=== PATIENT | male | born 1965 | race Caucasian/White ===

== ENCOUNTER 2023-01-20 13:31 | Outpatient (REF) | payer MEDICAID, SELFPAY ==
[2023-01-20 15:38] LABS: Alanine Aminotransferase 20 U/L (0-40); Albumin Level 4.4 g/dL (3.5-5.0); Alkaline Phosphatase 101 U/L (39-117); Anion Gap 15 (12-20); Aspartate Amino Transferase 18 U/L (5-37); Bilirubin Direct 0.2 mg/dL (0.0-0.5); Bilirubin Total 0.6 mg/dL (0.0-1.0); Blood Urea Nitrogen 12 mg/dL (9-16); Calcium 9.4 mg/dL (8.4-10.2); Carbon Dioxide 22 mmol/L (22-29); Chloride 107 mmol/L (96-108); Estimated Glomerular Filt Rate > 60; Glucose Random 90 mg/dL (60-115); Potassium 4.2 mmol/L (3.3-5.1); Sodium 140 mmol/L (135-145); Total Protein 7.5 g/dL (6.5-8.0)
[2023-01-21 05:06] LABS: Syphilis Screen Nonreactive (Nonreactive)
[2023-01-21 21:08] LABS: Lyme Abs Screen <0.90 index
== END 2023-01-20 13:32 | disposition home or self-care (01) ==
LOC: HO.LAB 13:31
PROVIDERS: PCP Nurse Practitioner Family; Visit Provider Psychiatry & Neurology Neurology
DX: G31.84 Mild cognitive impairment of uncertain or unknown etiology (principal)
CPT/HCPCS: 36415; 80048; 80076; 86617; 86618; 86780

== ENCOUNTER 2023-12-23 15:39 | Outpatient (REF) | payer MEDICAID, SELFPAY ==
[2023-12-23 17:04] LABS: MANUAL DIFF FLAG NO
[2023-12-23 17:30] LABS: Alanine Aminotransferase 28 U/L (0-40); Albumin Level 4.5 g/dL (3.5-5.0); Alkaline Phosphatase 94 U/L (39-117); Anion Gap 13 (12-20); Aspartate Amino Transferase 22 U/L (5-37); Bilirubin Total 0.3 mg/dL (0.0-1.0); Blood Urea Nitrogen 19 mg/dL (9-16); Calcium 9.8 mg/dL (8.4-10.2); Carbon Dioxide 24 mmol/L (22-29); Chloride 107 mmol/L (96-108); Estimated Glomerular Filt Rate > 60; Glucose Random 109 mg/dL (60-115); Potassium 4.5 mmol/L (3.3-5.1); Sodium 139 mmol/L (135-145); Total Protein 7.7 g/dL (6.5-8.0)
[2023-12-23 17:34] LABS: Basophils Absolute Auto 0.1 X10*3/uL (0.0-0.2); Basophils Percent Auto 0.6 % (0-2); Eosinophils Absolute Auto 0.4 X10*3/uL (0.0-0.4); Hematocrit 47.2 % (42.0-52.0); Hemoglobin 15.9 g/dl (14.0-18.0); Imm Gran Abs Auto 0.05 X10*3/uL (0.00-0.03); Imm Gran Pct Auto 0.4 % (0.0-0.4); Lymphocytes Absolute Auto 2.1 X10*3/uL (1.2-4.9); Lymphocytes Percent Auto 16.7 % (20-40); Mean Corpuscular HGB Conc 33.7 g/dl (31.0-36.0); Mean Corpuscular Hemoglobin 28.3 pg (27.0-33.0); Monocytes Absolute Auto 0.9 X10*3/uL (0.1-1.2); Neutrophils Percent Auto 72.3 % (45-73); Platelet Count 347 X10*3/uL (160-400); Red Blood Count 5.62 X10*6/uL (4.60-5.80); Red Cell Distribution Width 12.8 % (11.0-16.0); White Blood Count 12.5 X10*3/uL (4.8-10.8)
[2023-12-23 17:46] LABS: Thyroid Stimulating Hormone 2.61 uIU/mL (0.32-4.0)
== END 2023-12-23 15:40 | disposition home or self-care (01) ==
LOC: HO.HHCL 15:39
PROVIDERS: Visit Provider Nurse Practitioner Family
DX: R31.9 Hematuria, unspecified (principal); R51.9 Headache, unspecified; R27.0 Ataxia, unspecified
CPT/HCPCS: 36415; 80053; 84443; 85025; 87086

== ENCOUNTER 2024-01-20 15:21 | Outpatient (REF) | payer MEDICAID, SELFPAY ==
--- NOTE | ~2024-01-20 | CT_ITS ---
EXAMINATION: CT HEAD WITHOUT CONTRAST CLINICAL INFORMATION: Worsening headaches. Ataxia. Progressive dementia. Question hydrocephalus. COMPARISON: None available. TECHNIQUE: Contiguous axial imaging was performed from the skull base to vertex without intravenous administration of contrast. This CT examination was performed using dose optimization techniques as appropriate, variously including the following: *Automated exposure control *Adjustment of mA and/or kV according to patient size (this includes techniques or standardized protocols for targeted exams where dose is matched to indication/reason for exam; i.e. extremities or head) *Use of iterative reconstruction technique DLP: 701.05 mGy-cm FINDINGS: There is no acute intracranial hemorrhage. There is no evidence of acute/subacute cerebral or cerebellar infarction. There is no midline shift or mass effect. No extra-axial fluid collection. The ventricles are normal in size. The orbits are symmetric and within normal limits. The calvarium is intact. There is a tiny inferior right mastoid air cell effusion. The paranasal sinuses are well aerated. CT/CT head/brain wo IV con IMPRESSION: No intracranial hemorrhage or evidence of acute/subacute cerebral or cerebellar infarction. No evidence of intracranial mass lesion. No hydrocephalus.
--- NOTE | ~2024-01-20 | CT_ITS ---
EXAMINATION: CT LUMBAR SPINE WITHOUT AND WITH CONTRAST CLINICAL INFORMATION: New onset of bowel and bladder incontinence. COMPARISON: None available. TECHNIQUE: 2 minutes thin axial and reformatted 2 minutes thin sagittal coronal images of lumbar spine were obtained with and without contrast. This CT examination was performed using dose optimization techniques as appropriate, variously including the following: *Automated exposure control *Adjustment of mA and/or kV according to patient size (this includes techniques or standardized protocols for targeted exams where dose is matched to indication/reason for exam; i.e. extremities or head) *Use of iterative reconstruction technique DLP: 1833 mGy-cm FINDINGS: There is maintained lumbar lordosis with grade 1 anterolisthesis L5 over S1 and moderate ventral bridging osteophyte. There is mild loss of L5-S1 disc height. Rest the disc heights are normal. The vertebral heights and alignment is normal except L5/S1 disc level. There is moderate ventral spondylosis from L1-L2 through L3-L4 disc level. There is minimal pseudo at of L5-S1 disc level without spinal canal stenosis. There is bilateral L5 pars defect with hypertrophic facet joint arthropathy at the L4-L5 significantly increased on the right. Mild bilateral facet joint arthropathy seen at the L3-L4, L2-L3 disc levels. Postcontrast there is no abnormal enhancement seen in the spinal canal. No lytic or sclerotic process seen. The paravertebral soft tissues are normal. CT/CT lumbar spine wo/w IV con IMPRESSION: No soft tissue mass, abnormal enhancement seen in the lower thoracic/lumbar spine region to suspect any focal mass or herniation. Grade 1 anterolisthesis L5 over S1 with pars defect and moderate to significant bilateral facet joint arthropathy , worse on the right side at the L4-L5 disc level. There is no spinal compromise at any of the lower dorsal and lumbar spine areas.
[2024-01-20] MEDS: iohexoL 350 MG/ML 100 ML INFUS..BTL 85 ML IV (16:46)
== END 2024-01-20 15:22 | disposition home or self-care (01) ==
LOC: HO.CT 15:21
PROVIDERS: PCP Nurse Practitioner Family; Visit Provider Nurse Practitioner Family
DX: R27.0 Ataxia, unspecified (principal); M47.26 Other spondylosis with radiculopathy, lumbar region; R51.9 Headache, unspecified
CPT/HCPCS: 70450; 72133; Q9967

== ENCOUNTER 2024-02-23 13:29 | Outpatient (REF) | payer MEDICAID, SELFPAY ==
[2024-02-23 15:22] LABS: Vitamin B12 572 pg/mL (200-900)
[2024-02-24 07:34] LABS: Lyme Abs Screen <0.90 index
[2024-02-24 10:37] LABS: Syphilis Screen Nonreactive (Nonreactive)
== END 2024-02-23 13:30 | disposition home or self-care (01) ==
LOC: HO.LAB 13:29
PROVIDERS: PCP Nurse Practitioner Family; Visit Provider Psychiatry & Neurology Neurology
DX: Z11.8 Encounter for screening for other infectious and parasitic diseases (principal)
CPT/HCPCS: 36415; 82607; 86617; 86618; 86780

== ENCOUNTER 2024-03-15 10:50 | Outpatient (AMB) | payer MEDICAID, SELFPAY ==
--- NOTE | 2024-03-15 11:01 | A.OFFVIS_ITS ---
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 His sister states that he has had some memory loss. He complains of urinary urgency and has seen blood in the urine. I have discussed reasons for blood in the urine may include but are not limited to kidney stones, cancer in the urinary tract, BPH, or inflammatory conditions of the urinary tract. I have discussed workup to include cystoscopy evaluation. Will trial VESIcare 5 mg daily. Review of Systems Const All systems reviewed & are unremarkable except as noted in HPI and below Reports no additional complaints Eyes Reports no additional complaints ENT Reports no additional complaints Card Reports no additional complaints Resp Reports no additional complaints GI Reports no additional complaints Reports as per HPI Musc Reports no additional complaints Skin/Breast Reports system reviewed and no additional complaints, except as documented Neuro Reports no additional complaints Psych Reports no additional complaints Endo Reports no additional complaints Franklin/Lymph Reports no additional complaints Aller/Immun Reports no additional complaints Physical Exam Const General: healthy appearing, no acute distress and well developed Orientation/consciousness: patient oriented x3 HEENT Head: Yes normocephalic and Yes atraumatic Eyes Conjunctivae: conjunctivae normal Neck Neck: Yes normal visual inspection Chest Chest palpation & inspection: normal inspection of the chest Resp Effort & Inspection: normal respiratory effort Cardio Rate: regular rate GI Inspection: Yes normal to inspection Neuro General: patient oriented x3 Psych Appearance: grossly normal Affect: normal affect Office Procedures Post Void Residual Post Residual Void Post Void Residual (PVR): 62 [id number]-Mbjp Void Residual by ultrasound Results AMB Urinalysis, Automated UA Leukoctes 0 Zulema/uL Last Edit by Philly House CMA on 03/15/24 11:13 UA Nitrite Negative Last Edit by Philly House CMA on 03/15/24 11:13 UA Urobilinogen 0.2 mg/dL Last Edit by Philly House CMA on 03/15/24 11:13 UA Protein 0 mg/dL Last Edit by Philly House, GLO on 03/15/24 11:13 UA pH 5.5 Last Edit by Philly House, GLO on 03/15/24 11:13 UA Blood 0 Bharat/uL Last Edit by Philly House, GLO on 03/15/24 11:13 UA Specific [place] 1.020 Last Edit by Philly House, GLO on 03/15/24 11:13 UA Ketone Negative Last Edit by Philly House CMA on 03/15/24 11:13 UA Bilirubin 0 mg/dL Last Edit by Philly House CMA on 03/15/24 11:13 UA Glucose 0 mg/dL Last Edit by Philly House CMA on 03/15/24 11:13 Results Reviewed Results Reviewed: Laboratory Last Values Urine pH (Auto) 5.5 03/15/24 11:12 Specific [place] (Auto) 1.020 03/15/24 11:12 Urine Protein (Auto) 0 mg/dL 03/15/24 11:12 Glucose (UA)(Auto) 0 mg/dL 03/15/24 11:12 Urine Ketones (Auto) Negative 03/15/24 11:12 Urine Blood (Auto) 0 Bharat/uL 03/15/24 11:12 Urine Nitrite (Auto) Negative 03/15/24 11:12 Urine Bilirubin (Auto) 0 mg/dL 03/15/24 11:12 Urine Urobilinogen (Auto) 0.2 mg/dL 03/15/24 11:12 Leukocyte Esterase (Auto) 0 Zulema/uL 03/15/24 11:12 Assessment & Plan Assessment & Plan (1) Gross hematuria: Code(s): R31.0 - Gross hematuria Category: Medical (2) Screening PSA (prostate specific antigen): Code(s): Z12.5 - Encounter for screening for malignant neoplasm of prostate Category: Medical (3) Urinary frequency: Code(s): R35.0 - Frequency of micturition Category: Medical Plan CT urogram, follow-up office cystoscopy. Trial VESIcare Orders: Orders AMB Urinalysis Automated 03/15/24 Z13.9 - Encounter for screening, unspecified AMB Post Void Residual by ultrasound 03/15/24 Z13.9 - Encounter for screening, unspecified CT urogram 03/15/24 R31.0 - Gross hematuria Creatinine 03/15/24 R31.0 - Gross hematuria Blood Urea Nitrogen 03/15/24 R31.0 - Gross hematuria PSA,Total (Free>4and<10) 03/15/24 Z12.5 - Encounter for screening for malignant neoplasm of prostate, R31.0 - Gross hematuria Medications: New solifenacin (Vesicare) 5 mg PO DAILY 30 tabs 3RF Patient Instructions: The patient had an opportunity to ask questions regarding treatment plan. The patient expressed understanding and agreement with the above treatment plan. The patient is aware they should contact our office by phone for worsening of their current condition or the appearance of new symptoms. Compliance is encouraged with any medications and followup testing that is ordered. It is a privilege to be allowed the opportunity to participate in the urologic care of your patient. If you have any questions or concerns regarding treatment for the above conditions please do not hesitate to contact me. The office telephone contact is [phone]. This note is constructed in part using voice recognition software. While every effort has been made to ensure accuracy planning assistant errors may have been included. Yours sincerely, Lucina Archibald MD Coding Level of Care Code New Pt Level 4 (70999) Diagnoses Gross hematuria R31.0 Screening PSA (prostate specific antigen) Z12.5 Urinary frequency R35.0 CPT Codes Post Residual Void - PVR CPT Code: 66950-Fxci Void Residual by ultrasound ([id number])
== END 2024-03-15 11:29 | disposition home or self-care (01) ==
PROVIDERS: PCP Nurse Practitioner Family; Visit Provider Urology
DX: R31.0 Gross hematuria (principal); Z12.5 Encounter for screening for malignant neoplasm of prostate; R35.0 Frequency of micturition
CPT/HCPCS: 99204

== ENCOUNTER → 2024-03-15 10:50 | Outpatient (BNVA) | payer MEDICAID, SELFPAY | PROVIDERS: PCP Nurse Practitioner Family; Visit Provider Urology | DX: R31.0 Gross hematuria (principal); R35.0 Frequency of micturition; Z12.5 Encounter for screening for malignant neoplasm of prostate | CPT/HCPCS: 51798; 81003; 99202 ==

== ENCOUNTER 2024-03-15 11:52 | Outpatient (REF) | payer MEDICAID, SELFPAY ==
[2024-03-15 14:10] LABS: Prostate Specific Antigen Scr 0.88 ng/mL (<0.05-4.0)
[2024-03-16 12:49] LABS: RPR Rapid Plasma Reagin NON-REACTIVE (NON-REACTIVE)
== END 2024-03-15 11:53 | disposition home or self-care (01) ==
LOC: HO.10HDL 11:52
PROVIDERS: Visit Provider Nurse Practitioner Family
DX: Z12.5 Encounter for screening for malignant neoplasm of prostate (principal); R31.9 Hematuria, unspecified; R27.0 Ataxia, unspecified
CPT/HCPCS: 36415; 84153; 86592

== ENCOUNTER 2024-03-16 12:30 | Outpatient (REF) | payer MEDICAID, SELFPAY ==
--- NOTE | ~2024-03-16 | XR_ITS ---
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 TECHNIQUE: PA, lateral, oblique, and scaphoid views of the left wrist. FINDINGS: No fracture, dislocation, or suspicious bone lesion. Normal bone mineralization. Carpal bones intact and normally aligned. No erosions present. Mild blunting of the ulnar styloid noted. 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 Mild narrowing of the radiocarpal joint. Mild degenerative arthritis first CMC joint. No definitive chondrocalcinosis evident. No soft tissue abnormalities. XR/XR wrist LT min 3V IMPRESSION: 1. No acute findings left wrist. 2. Mild degenerative arthritic changes as discussed. Electronically signed by: Issa Saldana MD 05/25/2024 02:56 PM ELIJAH RANDALL
== END 2024-03-16 12:31 | disposition home or self-care (01) ==
LOC: HO.HHCX 12:30
PROVIDERS: Visit Provider Nurse Practitioner Family
DX: R22.32 Localized swelling, mass and lump, left upper limb (principal)
CPT/HCPCS: 73110

== ENCOUNTER → 2024-03-16 12:31 | Outpatient (BNV) | payer MEDICAID, SELFPAY | PROVIDERS: Visit Provider Radiology Diagnostic Radiology | DX: R22.32 Localized swelling, mass and lump, left upper limb (principal) | CPT/HCPCS: 73110 ==

== ENCOUNTER → 2024-04-23 14:47 | Outpatient (REF) | payer MEDICAID, SELFPAY | LOC: HO.SL 14:47 | PROVIDERS: PCP Nurse Practitioner Family; Visit Provider Psychiatry & Neurology Neurology | DX: G47.33 Obstructive sleep apnea (adult) (pediatric) (principal) | CPT/HCPCS: 95806 ==

== ENCOUNTER → 2024-04-24 19:00 | Outpatient (BNV) | payer MEDICAID, SELFPAY | PROVIDERS: PCP Nurse Practitioner Family; Visit Provider Internal Medicine | DX: R06.83 Snoring (principal) | CPT/HCPCS: 95806 ==

== ENCOUNTER 2024-05-03 15:28 | Outpatient (REF) | payer MEDICAID, SELFPAY ==
[2024-05-03 18:13] LABS: Alanine Aminotransferase 19 U/L (0-40); Albumin Level 4.2 g/dL (3.5-5.0); Alkaline Phosphatase 88 U/L (39-117); Anion Gap 12 (12-20); Aspartate Amino Transferase 20 U/L (5-37); Bilirubin Total 0.3 mg/dL (0.0-1.0); Blood Urea Nitrogen 17 mg/dL (9-16); Calcium 8.8 mg/dL (8.4-10.2); Carbon Dioxide 23 mmol/L (22-29); Chloride 108 mmol/L (96-108); Estimated Glomerular Filt Rate > 60; Glucose Random 96 mg/dL (60-115); Potassium 4.6 mmol/L (3.3-5.1); Sodium 138 mmol/L (135-145); Total Protein 7.2 g/dL (6.5-8.0)
[2024-05-03 18:15] LABS: PSA,Total (Free>4and<10) 0.81 ng/mL (0.00-4.00)
[2024-05-03 18:22] LABS: Uric Acid 6.2 mg/dL (3.4-7.0)
[2024-05-07 11:28] LABS: RPR Rapid Plasma Reagin NON-REACTIVE (NON-REACTIVE)
== END 2024-05-03 15:29 | disposition home or self-care (01) ==
LOC: HO.LAB 15:28
PROVIDERS: PCP Nurse Practitioner Family; Visit Provider Urology
DX: I10 Essential (primary) hypertension (principal); R41.0 Disorientation, unspecified; R31.0 Gross hematuria; Z12.5 Encounter for screening for malignant neoplasm of prostate
CPT/HCPCS: 36415; 80053; 84153; 84550; 86592

== ENCOUNTER 2024-05-08 10:52 | Outpatient (REF) | payer MEDICAID, SELFPAY ==
[2024-05-08] MEDS: iohexoL 350 MG/ML 100 ML INFUS..BTL IV (11:30)
== END 2024-05-08 10:53 | disposition home or self-care (01) ==
LOC: HO.CT 10:52
PROVIDERS: PCP Nurse Practitioner Family; Visit Provider Urology
DX: R31.0 Gross hematuria (principal)
CPT/HCPCS: 74178; Q9967

== ENCOUNTER → 2024-05-08 10:54 | Outpatient (BNV) | payer MEDICAID, SELFPAY | PROVIDERS: PCP Nurse Practitioner Family; Visit Provider Radiology Diagnostic Radiology | DX: R31.0 Gross hematuria (principal) | CPT/HCPCS: 74178 ==

== ENCOUNTER 2024-08-23 13:25 | Outpatient (AMB) | payer MEDICAID, SELFPAY ==
--- NOTE | 2024-08-23 13:34 | MHC.OFFVIS ---
Intake Visit Reasons: cysto (hematuria) Intake Note: Patient is present for Cystoscopy Urology Medication:SOLIFEACIN Antibiotic Allergy:NONE Blood Thinner:NONE Lot:[id number] Exp:04/23/27 Equity Manager Required: No Equity Manager Name: Maylin Light Information Interpreted: non-clinical & clinical Allergies No Known Allergies Allergy (Verified 08/23/24 13:37) Medication List - Last Reconciled 08/23/24 by Lucina Archibald MD escitalopram oxalate 20 mg PO DAILY lisinopril 20 mg PO DAILY omeprazole 20 mg PO DAILY quetiapine 300 mg PO BEDTIME solifenacin (Vesicare) 5 mg PO DAILY HPI Comments Details: 08/23/24--Here for office cysto. Cystoscopy findings: mild to moderate trabeculations, prostatic urethra non obstructive, bulbous urethra WNL, no suspicious bladder lesions visualized Luis is a 59-year-old male presenting in February 2024, he reported urgency with urinary symptoms, including hematuria and and was prescribed Vesicare. Initially seen with blood in the urine, his CT urogram in April 2024 was unremarkable. His current symptoms include occasional post-void dribbling. Today's cystoscopy showed mild bladder wall thickening without tumors, which might contribute to urgency and spasms. The patient reports no nocturnal urinary symptoms or pain and has no history of smoking. Urinary Symptoms Review - Blood in urine (hematuria) noted initially but not currently present - Urinary urgency reported, previously prescribed Vesicare 5 mg daily - Post-micturition dribbling noticed, advised to ensure complete emptying - No further incidence of hematuria since initial episode - No reported nocturia or associated pain symptoms Results - Tests: CT urogram 05/08/24--negative for renal parenchymal lesions or nephrolithiasis 03/15/24--Luis is a 58-year-old male who is here with his sister, presents for evaluation for hematuria. His sister states that he has had some memory loss. He complains of urinary urgency and has seen blood in the urine. I have discussed reasons for blood in the urine may include but are not limited to kidney stones, cancer in the urinary tract, BPH, or inflammatory conditions of the urinary tract. I have discussed workup to include cystoscopy evaluation. Will trial VESIcare 5 mg daily. Review of Systems Const All systems reviewed & are unremarkable except as noted in HPI and below Reports no additional complaints Eyes Reports no additional complaints ENT Reports no additional complaints Card Reports no additional complaints Resp Reports no additional complaints GI Reports no additional complaints Reports as per HPI Musc Reports no additional complaints Skin/Breast Reports system reviewed and no additional complaints, except as documented Neuro Reports no additional complaints Psych Reports no additional complaints Endo Reports no additional complaints Franklin/Lymph Reports no additional complaints Aller/Immun Reports no additional complaints Office Procedures Cystoscopy Consent Discussed risk and benefit or proposed procedure with the patient. Information consent for procedure given to the patient. Discussed technical aspects, risks, benefits and alternatives in full. Addressed all of the patient's questions and concerns regarding the procedure. The patient demonstrated knowledge and understanding. They wish to proceed with this procedure. Preparation The patient was prepped in the usual manner. A customer service operator was present and in the room. Genitalia was prepped with betadine solution in a sterile manner. Lidocaine Jelly 2% was placed into the urethra and 16Fr flexible Olympus cystoscope was inserted into the meatus after adequate lubrication. Procedure Time out per protocol performed. Bladder Inspection Bladder Inspection: The bladder was inspected in its entirety with utilization retroflexion displaying: Tumor(s): no suspicious bladder lesions visualized Trabeculation: Mild Moderate Mucosal Erthema: NA Orifices: normal shape and position Urethra: normal Cystoscopy findings: prostatic urethra non obstructive, bulbous urethra WNL, no suspicious bladder lesions visualized [id number] DISPOSABLE SCOPE URO-G FLEXIBLE SCOPE Procedure code (CPT) selection complete Office Meds lidocaine HCl 2 % mucosal jelly in applicator Performing Provider: Lucina Archibald MD Performing [facility] Administered by: Anastacia Álvarez RN on 08/23/24 14:05 Dose Route Admin Location Dispensed Lot Number Expiration Date [facility] [employer] 10 mL intra-urethral 10 mL ciprofloxacin HCl 500 mg tablet Performing Provider: Lucina Archibald MD Performing Location: [facility] Administered by: Anastacia Álvarez RN on 08/23/24 14:05 Dose Route Admin Location Dispensed Lot Number Expiration Date [facility] [employer] 500 mg PO 1 tab Results AMB Urinalysis, Automated UA Leukoctes 0 Zulema/uL Last Edit by DEION Boateng on 08/23/24 13:56 UA Nitrite Negative Last Edit by DEION Boateng on 08/23/24 13:56 UA Urobilinogen 3.5 mg/dL Last Edit by DEION Boateng on 08/23/24 13:56 UA Protein 15 mg/dL Last Edit by DEION Boateng on 08/23/24 13:56 UA pH 6.0 Last Edit by DEION Boateng on 08/23/24 13:56 UA Blood 0 Bharat/uL Last Edit by DEION Boateng on 08/23/24 13:56 UA Specific [place] 1.020 Last Edit by DEION Boateng on 08/23/24 13:56 UA Ketone Last Edit by DEION Boateng on 08/23/24 13:56 UA Bilirubin 0 mg/dL Last Edit by DEION Boateng on 08/23/24 13:56 UA Glucose 0 mg/dL Last Edit by DEION Boateng on 08/23/24 13:56 Results Reviewed Results Reviewed: Laboratory Last Values Urine pH (Auto) 6.0 08/23/24 13:55 Specific [place] (Auto) 1.020 08/23/24 13:55 Urine Protein (Auto) 15 mg/dL 08/23/24 13:55 Glucose (UA)(Auto) 0 mg/dL 08/23/24 13:55 Urine Blood (Auto) 0 Bharat/uL 08/23/24 13:55 Urine Nitrite (Auto) Negative 08/23/24 13:55 Urine Bilirubin (Auto) 0 mg/dL 08/23/24 13:55 Urine Urobilinogen (Auto) 3.5 mg/dL 08/23/24 13:55 Leukocyte Esterase (Auto) 0 Zulema/uL 08/23/24 13:55 Date of Service: 05/08/24 EXAMINATION: CT ABDOMEN AND PELVIS WITHOUT AND WITH CONTRAST CLINICAL INFORMATION: Gross hematuria COMPARISON: None available. TECHNIQUE: Noncontrast CT of the abdomen and pelvis is performed followed by split bolus contrast-enhanced images using 85 mL Omnipaque 350 contrast. Postcontrast imaging is performed during the combined nephrogram and excretion phase. Sagittal and coronal reformatted images were obtained on the technologist's workstation for both the precontrast and postcontrast phases. This CT examination was performed using dose optimization techniques as appropriate, variously including the following: *Automated exposure control *Adjustment of mA and/or kV according to patient size (this includes techniques or standardized protocols for targeted exams where dose is matched to indication/reason for exam; i.e. extremities or head) *Use of iterative reconstruction technique FINDINGS: LUNG BASES: The visualized lung bases are unremarkable. Heart size is normal LIVER, GALLBLADDER, AND BILIARY TREE: The liver is normal in size, shape, and diffusely attenuated. No focal hepatic lesion or biliary ductal dilatation is present. The gallbladder is unremarkable with no evidence of radiopaque gallstones, gallbladder wall thickening, or obvious pericholecystic inflammatory changes. PANCREAS: Unremarkable. SPLEEN: Unremarkable. ADRENAL GLANDS: Unremarkable. KIDNEYS AND URETERS: The kidneys are normal in size, shape, and attenuation. No hydronephrosis, hydroureter, or calculi seen. There is mild bilateral perinephric stranding. Postcontrast there is normal cortical enhancement without enhancing lesion or cysts. On delayed exam there is good opacification of kidney pelvis and ureters without any distention or intraluminal filling defect. BLADDER: Unremarkable. GASTROINTESTINAL TRACT: There is scattered stool and gas in colon without distention. The small bowel loops are normal caliber. Appendix is normal caliber. ABDOMINAL WALL: Small umbilical hernia was noted on the previous exam.. LYMPH NODES: Normal. VASCULAR: Unremarkable. PELVIC VISCERA: The prostate gland is mildly enlarged. The periprosthetic fat borders are preserved. OSSEUS STRUCTURES: There is grade 1 anterolisthesis L5 over S1. Rest of the alignment is normal. Moderate L5-S1 facet joint arthropathy and hypertrophy is noted There is mild ventral spondylosis at L2-3 disc level. No aggressive lytic or sclerotic process seen. IMPRESSION: Unremarkable CT kidneys without and with contrast except for mild bilateral perinephric stranding. Please note the exam was performed on 05/08/2024 and is available for interpretation today 07/05/2024. Assessment & Plan Assessment & Plan (1) Gross hematuria: Code(s): R31.0 - Gross hematuria Category: Medical (2) Screening PSA (prostate specific antigen): Code(s): Z12.5 - Encounter for screening for malignant neoplasm of prostate Category: Medical (3) Urinary frequency: Code(s): R35.0 - Frequency of micturition Category: Medical (4) Bladder wall thickening: Code(s): N32.89 - Other specified disorders of bladder Category: Medical Plan Discussion Notes During the visit, I carefully explained the cystoscopy findings to the patient, detailing the presence of mild bladder wall thickening and the absence of tumors, which is promising. We discussed the continued management with Vessicare 5 mg daily to address urgency symptoms and any bladder spasms. There was a thorough discussion on the importance of complete bladder evacuation and monitoring for any further hematuria. Consent was obtained for this management approach, and the patient understands the benefits and a well-organized follow-up plan, with routine checks in place to monitor urinary symptoms and bladder health. Plan Based on the findings of mild bladder wall thickening and no bladder tumors during cystoscopy, I plan to manage the patient's urinary urgency with continued Vessicare [address] urogram being unremarkable assures no significant renal concerns. I advise the patient to ensure adequate voiding to prevent dribbling, facilitating complete bladder clearance. Regular follow-ups will be conducted to evaluate ongoing symptoms and bladder condition. No further immediate interventions or changes in the therapy are necessary. Orders: Orders AMB Cystoscopy Today R31.0 - Gross hematuria, R35.0 - Frequency of micturition AMB Urinalysis Automated Today Z13.9 - Encounter for screening, unspecified Medications: Refilled solifenacin (Vesicare) 5 mg PO DAILY 30 tabs 7RF Patient Instructions: Patient Instructions - Continue taking Vessicare 5 mg daily as prescribed. - Ensure complete bladder emptying after urination to prevent dribbling. - Monitor for any recurrence of blood in the urine or other new symptoms. - Schedule a follow-up appointment in nine months for reevaluation. - Contact our office if any urinary symptoms worsen or if there are further episodes of hematuria. The patient had an opportunity to ask questions regarding treatment plan. The patient expressed understanding and agreement with the above treatment plan. The patient is aware they should contact our office by phone for worsening of their current condition or the appearance of new symptoms. Compliance is encouraged with any medications and followup testing that is ordered. It is a privilege to be allowed the opportunity to participate in the urologic care of your patient. If you have any questions or concerns regarding treatment for the above conditions please do not hesitate to contact me. The office telephone contact is [phone]. This note is constructed in part using voice recognition software. While every effort has been made to ensure accuracy network administrator errors may have been included. Yours sincerely, Lucina Archibald MD Scribe Plan - Not visible on output: Patient was informed and verbally consented to the use of an ambient scribe for clinic note documentation during this visit. Coding Level of Care Code Est Pt Level 3 (63665) Diagnoses Gross hematuria R31.0 Screening PSA (prostate specific antigen) Z12.5 Urinary frequency R35.0 Bladder wall thickening N32.89 CPT Codes Cystoscopy - CPT: 10527-Yftserlvyc ([id number])
--- OUTSIDE RECORDS SUMMARY | 2024-08-23 16:20 | XMS_ITS | Encounter Summary ---
Author Organization [employer] Address [address] [facility] 7t [place] [address] Care Team Providers Care Plant Engineering Supervisor Name Role Phone Veronica Edmondson NP Primary Care Provider [phone] Reason for Visit * Reason Onset Date Comments Chart Prep 07/31/2024 Encounter Details Date Type Department Care Team ([facility] st Contact Info) Description 07/31/2024 Telephone [facility] [address] [place], [place] [phone] Kamryn Ley MA Chart Prep Social History Tobacco Use Types Packs/Day Years Used Date Smoking Tobacco: Never Passive Smoke Exposure: Never Smokeless Tobacco: Never Alcohol Use Standard Drinks/Week Comments Never 0 (1 standard drink = 0.6 oz pur e alcohol) Depression Answer Date Recorded Patient Health Questionnaire-9 Score 21 12/23/2023 Patient Health Questionnaire-9 Score 21 12/23/2023 Last PHQ-9: Questionnaire Data Not on file 0 12/23/2023 Housing Stability Answer Date Recorded What is your housing situation today? I have malia miranda 12/15/[address] you li ve. Do you have problems with any of the following? None of the above 12/15/2023 Food Insecurity Answer Date Recorded Within the past 12 months, y ou worried that your food would run out before you got money to buy more: Never True 12/15/2023 Within the past 12 months,th e food you bought just didn't last and you didn't have enough money to get more: Never True Transportation Answer Date Recorded In the past 12 months, has l ack of transportation kept you from medical appts, meetings, work or from getting things needed for daily living? No 12/15/2023 Utilities Answer Date Recorded In the past 12 months, has t he electric, gas, oil or water company threatened to shut off services in your home? No 12/15/2023 Depression Answer Date Recorded Patient Health Questionnaire-2 Score 0 06/22/2024 Internet Access Answer Date Recorded Internet Access Q1 No 02/17/2024 Internet Access Q2 I do not want or need it 01/20 Sex and Gender Information Value Date Recorded Sex Assigned at Male 04/19/2022 10:14 AM EDT Legal Sex Male 10:14 AM EDT Gender Identity Male 06/30/2022 11:59 AM EST Sexual Orientation Choose not to disclose 2022 11:59 AM EST documented as of this encounter Miscellaneous Notes * Telephone Encounter - Kamryn Ley MA - 07/31/2024 3:32 PM EST Chart Prep Labs: done Images: done Vaccines due: Tdap, PCV20, Shingles Referrals: Pt had appointment on 07/19/24 at 11 Am Screenings: colonoscopy , Lipid panel, HIV, Hep C Overdue care gaps: none documented in this encounter Plan of Treatment Upcoming Encounters Date Type Department Care Team (Late st Contact Info) Description 09/24/2024 11:30 AM EDT Office Visit [facility] [address] [place] [address] Veronica Edmondson NP [address] [place] [address] documented as of this encounter Visit Diagnoses Not on filedocumented in this encounter Additional Health Concerns Assessment Noted Time PHQ-9 Depression Total Score: 21 024 2:46 PM EDT documented as of this encounter Care Teams Plant Engineering Supervisor Relationship Specialty Start Date End Date Veronica Edmondson NP [address] [place] [address] PCP - General Family Medicine 12/23/23 documented as of this encounter
--- OUTSIDE RECORDS SUMMARY | 2024-08-23 16:20 | XMS_ITS | Encounter Summary ---
Author Organization [employer] Address [address] 7[address] [place] [address] Care Team Providers Care Seal Mixer Name Role Phone Veronica Edmondson NP Primary Care Provider [phone] Encounter Details Date Type Department Care Team (Latest Contact Info) Description 08/20/2024 Travel Social History Tobacco Use Types Packs/Day Years [...] AM EST documented as of this encounter Plan of Treatment Upcoming Encounters Date Type Department Care Team (Late st Contact Info) Description 09/24/2024 11:30 AM EDT Office Visit [facility] [address] [place] [address] Veronica Edmondson NP [address] [place] [address] documented as of this encounter Visit Diagnoses Not on filedocumented in this encounter Additional Health Concerns Assessment Noted Time PHQ-9 Depression Total Score: 21 024 2:46 PM EDT documented as of this encounter Care Teams Seal Mixer Relationship Specialty Start Date End Date Veronica Edmondson NP [address] [place] [address] PCP - General Family Medicine 12/23/23 documented as of this encounter
--- OUTSIDE RECORDS SUMMARY | 2024-08-23 16:20 | XMS_ITS | Encounter Summary ---
Author Organization [employer] Address [address] [facility] [address] [place] [address] Care Team Providers Care Mechanical Assembly Name Role Phone Veronica Edmondson NP Primary Care Provider [phone] Encounter Details Date Type Department Care Team (Latest Contact Info) Description 08/07/2024 Travel Social History Tobacco Use Types Packs/Day [...] Description 09/24/2024 11:30 AM EDT Office Visit [facility] [address] [place] [address] Veronica Edmondson NP [address] [place] [address] documented as of this encounter Visit Diagnoses Not on filedocumented in this encounter Additional Health Concerns Assessment Noted Time PHQ-9 Depression Total Score: 21 024 2:46 PM EDT documented as of this encounter Care Teams Mechanical Assembly Relationship Specialty Start Date End Date Veronica Edmondson NP [address] [place] [address] PCP - General Family Medicine 12/23/23 documented as of this encounter
--- OUTSIDE RECORDS SUMMARY | 2024-08-23 16:20 | XMS_ITS | Clinical Summary ---
Author Organization [employer] Address [address] [facility] 7t [place] [address] Care Team Providers Care Analytical Data Miner Name Role Phone Veronica Edmondson NP Primary Care Provider [phone] Allergies No known active allergies Medications * This document contains information received from the source organization and may not represent a complete record from that organization. lisinopril 20 MG tablet TAKE 1 TABLET BY MOUTH EVERY DAY 90 tablet 07/23/19 25 Active Tirzepatide-Weig ht Management (Zepbound) 2.5 MG/0.5ML solution auto-injectorInd ications:Morbid obesity with BMI of 40.0-44.9, adult ([facility]) Inject 0.5 mL (2.5 mg) under the skin 1 (one) time per week. 2 mL 08/07/19 25 Active naproxen (Naprosyn) 500 MG tabletIndication s:Lumbosacral radiculopathy Take 1 tablet (500 mg) by mouth if needed in the morning and at bedtime for mild pain (with meals). 60 tablet 08/07/19 25 Active acetaminophen (Tylenol Extra Strength) 500 MG tabletIndication s:Lumbosacral radiculopathy Take 1 tablet (500 mg) by mouth every 6 (six) hours if needed for mild pain for up to 20 days. 80 tablet 08/07/19 25 025 Active albuterol 108 (90 Base) MCG/ACT inhalerIndicatio ns:Moderate asthma, unspecified whether complicated, unspecified whether persistent Inhale 2 puffs every 6 (six) hours if needed for wheezing. 18 g 11 08/07/19 25 026 Active lidocaine (Lidoderm) 5 % patchIndications :Lumbosacral radiculopathy Apply 1 patch topically Once per day. Remove & discard patch within 12 hours or as directed by MD. 30 patch 1 08/07/19 25 Active QUEtiapine (SEROquel) 300 MG tablet Take 1 tablet (300 mg) by mouth at bedtime. 30 tablet 08/07/19 25 025 Active naproxen (Naprosyn) 500 MG tablet TAKE 1 TABLET BY MOUTH TWICE A DAY 60 tablet 05/23/20 24 025 Discontinued(R eorder (will not trigger notification to Pharmacy)) Tirzepatide-Weig ht Management (Zepbound) 2.5 MG/0.5ML solution auto-injectorInd ications:Morbid obesity with BMI of 40.0-44.9, adult ([facility]) Inject 0.5 mL (2.5 mg) under the skin 1 (one) time per week. 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 Current severe episode of ma jerry depressive disorder with psychotic features 06/22/2024 Morbid obesity with BMI of 40.0-44.9, adult 05/20 Assessment & Plan (06/16/2024 12:12 PM EST): Pt has completed sleep study, morbid obesity, Will trial willa URIEL (obstructive sleep apnea) 06/05/2024 Assessment & Plan (06/16/2024 12:12 PM EST): presumed Mass of right hand 04/13/2024 Exercise counseling 04/08/2024 Assessment & Plan (07/14/2024 10:12 AM EST): Encouraged activity, start with daily walks Assessment & Plan (04/08/2024 5:31 PM EDT): Encouraged daily movement Dietary counseling 04/08/2024 Assessment & Plan (07/14/2024 10:12 AM EST): Reviewed importance of hydration and whole foods Pt verbalizes understanding- both pt and sister report that when pt gets home hard for pt to stick to health goals Sister provides most food and cooking Declines referral to nutrition Assessment & Plan (04/08/2024 5:31 PM EDT): Encouraged minimizing processed foods and increasing whole foods particularly vegetables 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 Rtc in 4 weeks Snoring 01/23/2024 Assessment & Plan (04/08/2024 5:30 PM EDT): Suspect apnea, referral to sleep medicine Assessment & Plan (02/12/2024 11:36 AM EDT): Possible sleep apnea, Referral to sleep medicine Enchondroma of bone 01/23/2024 Intellectual disability 12/28/2023 Assessment & Plan (02/12/2024 11:36 AM EDT): Working with home health care to increase computer graphic artist hours Assessment & Plan (12/28/2023 1:47 PM EDT): Supportive family, sister concerned about progression of memory loss, referral to neuro Ataxia 12/23/2023 Assessment & Plan (12/28/2023 1:47 PM EDT): New onset falls, as legs now give out lumbar ct ordered Hematuria 12/23/2023 Assessment & Plan (12/28/2023 1:46 PM EDT): Referral to urology Culture pending Osteoarthritis of spine with radiculopathy, lumb ar region 12/23/2023 Assessment & Plan (04/08/2024 5:30 PM EDT): Referral to physiatry Assessment & Plan (12/28/2023 1:45 PM EDT): Ct of lumbar spine ordered, while no recent trauma, new onset bowel and bladder incontinence. Has ACCOUNT MANAGER B2B support at home Worsening headaches 12/23/2023 Assessment & Plan (12/28/2023 1:46 PM EDT): Increasing frequency and severity coupled with diminishing cognitive function, will CT head. Referral to neuro Labs as ordered below Anxiety 12/23/2023 Severe episode of recurrent major depressive disorder, with psychotic features 12/23/2023 Assessment & Plan (07/14/2024 10:13 AM EST): Difficulty with motivation, fatigue and appetite, some of which may be related to mediation side effects Referral to Assessment & Plan (12/28/2023 1:46 PM EDT): In care with psychiatry, will coordinate care with psychiatric team Encounters * This document contains information received from the source organization and may not represent a complete record from that organization. Date Type Department Care Team Description 08/20/2024 Travel 08/07/2024 11:30 AM EST Office Visit [facility] [address] [place] [address] Veronica Edmondson NP Morbid obesity with BMI of 40.0-44.9, adult ([facility]) (Primary Dx); Lumbosacral radiculopathy; Moderate asthma, unspecified whether complicated, unspecified whether persistent; Disorganized schizophrenia (CMS/HCC) 08/07/2024 Travel 08/02/[address] [address] Veronica Edmondson NP Prior Authorization (Zepbound) 07/31/[address] [address] Kamryn Ley MA Chart Prep 07/22/[address] [address] Veronica Edmondson NP 07/12/2024 Travel 06/26/[address] [address] Nohemy Jensen MA PA for Wegovy 06/22/2024 4:00 PM EST Office Visit [address] [address] Veronica Edmondson NP Current severe episode of major depressive disorder with psychotic features, unspecified whether recurrent ([facility]) (Primary Dx); Dietary counseling; Exercise counseling; Severe episode of recurrent major depressive disorder, with psychotic features (CMS/HCC) 06/21/[address] [address] Kamryn Ley MA Chart Prep 06/16/2024 Travel 06/07/2024 Telephone [facility] [address] [place] [address] Veronica Edmondson NP Prior Authorization 06/05/2024 1:45 PM EST Office Visit [address] [address] Veronica Edmondson NP Morbid obesity with BMI of 40.0-44.9, adult (CMS/HCC) (Primary Dx); URIEL (obstructive sleep apnea) 06/05/2024 Travel 06/04/[address] [address] Kamryn Ley MA Chart Prep 05/30/2024 Travel from Last 3 Months Immunizations Name Administration Dates Next Due Hep B, Unspecified 08/23/2003,01/18/2002, 002 INFLUENZA VACCINE QUADRIVALE NT RECOMBINANT PRESERVATIVE FREE RIV4 04/06/2023 Influenza injectable quadriv alent IIV4 with preservative 03/17/2015 Influenza injectable quadriv alent preservative free 04/22/2022,07/06/2021,04/02/2020,03/21,03/06/2018,03/24/2017,03/17/2016 Influenza live intranasal qu adrivalent LIAV4 03/26/2014 Influenza, IIV3, injectable 02/14/2012 Influenza, Unspecified 03/20/2023,2007,04/27/2006,05/13 Influenza, seasonal, injecta ble, preservative free 03/23/2024 Moderna Covid-19 Vaccine 12+ 11/24/2020 Pfizer Covid-19 Vaccine 12+ 11/12/2020 Pneumococcal Polysaccharide PPSV23 08/06/2021 Td (adult), unspecified 08/23/2003 Tdap 06/03/2014,03/26/2014 Social History Tobacco Use Types Packs/Day Years Used Date Smoking Tobacco: Never Passive Smoke Exposure: Never Smokeless Tobacco: Never Tobacco Cessation:Counseling Given: Not Answered Alcohol Use Standard Drinks/Week Comments Never 0 [...] not to disclose 2022 11:59 AM EST Last Filed Vital Signs Vital Sign Reading Time Taken Comments Blood Pressure 128/76 08/07/2024 11:34 AM EST Pulse 85 08/07/2024 11:34 AM EST Temperature 36 ??C (96.8 ??F) 08/07/2024 11:34 AM EST Respiratory Rate 18 08/07/2024 11:34 AM EST Oxygen Saturation 98% 08/07/2024 11:34 AM EST Inhaled Oxygen Concentration - - Weight 108 kg (237 lb) 08/07/2024 11:34 AM EST Height 157.5 cm (5' 2 ) 08/07/2024 11:34 AM EST Body Mass Index 43.35 08/07/2024 11:34 AM EST Plan of Treatment Upcoming Encounters Date Type Department Care Team (Late st Contact Info) Description 09/24/2024 11:30 AM EDT Office Visit [facility] [address] [place] [address] Veronica Edmondson NP [address] [place] [address] Health Maintenance Due Date Last Done Comments CT Colonography 1967 Colonoscopy 1967 Colorectal Cancer Screening 1965 FIT DNA/Cologuard 1967 FIT 1967 FOBT 1967 HIV Screening 1965 Lipid Panel 1967 Sigmoidoscopy 1967 Hepatitis C Screening 1985 Zoster Vaccines (1 of 2) 2017 Pneumococcal Vaccine: 50+ Years (2 of 2 - PCV) 08/06/2022 08/06/2021 Dental Oral Exam 01/14/2023 07/16/2022 Dental Prophylaxis 04/25/2023 10/22/2022 Dental X-Ray: Bitewings 10/10/2023 10/08/2022, 07/16 DTaP/Tdap/Td Vaccines (3 - Td or Tdap) 06/03/2024 06/03/2014, 03/26/2014, 08/23/2003 Depression Monitoring (PHQ-9) 12/20/2024 06/22/2024, 12/23/2023 Alcohol/Substance Use Screening 12/22/2024 12/23/2023 SDOH Screening 12/22/2024 12/23/2023 Depression Screening 06/22/2025 06/22/2024, 12/23/19 Dental X-Ray: Full Mouth 07/17/2025 07/16/2022 Tobacco Screening 08/07/2025 08/07/2024 RSV Patients and Patients Aged 60 years or older (1 - 1-dose 75+ series) 2042 Hepatitis B Vaccines Completed 08/23/2003, 01/18/2002, 10/27/2001 COVID-19 Vaccine Completed 03/23/2024, , 11/24/2020, Additional history exists Influenza Vaccine Completed 03/23/2024, , 03/20/2023, Additional history exists HIB Vaccines Aged Out No longer eligi ble based on patient's age to complete this topic HPV Vaccines Aged Out No longer eligi ble based on patient's age to complete this topic Hepatitis A Vaccines Aged Out No long er eligible based on patient's age to complete this topic IPV Vaccines Aged Out No longer eligi ble based on patient's age to complete this topic Meningococcal Vaccine Aged Out No jarvis benjy eligible based on patient's age to complete this topic RSV under 20 months Aged Out No longe r eligible based on patient's age to complete this topic Rotavirus Vaccines Aged Out No longer eligible based on patient's age to complete this topic Procedures Procedure Name Priority Date/Time Associated Diagnosis Comments PROPHYLAXIS - ADULT Routine 10/22/2022 3 :00 PM EDT BITEWING - SINGLE RADIOGRAPHIC IMAGE Routine 10/08/2022 3:00 PM EDT INTRAORAL - COMPLETE SERIES OF RADIOGRAPHIC IMAGES Routine 07/16/2022 2:00 PM EST COMPREHENSIVE ORAL EVALUATION - NEW OR ESTABLISHED PATIENT Routine 07/16/2022 2:00 PM EST from Last 3 Months or Most Recently Relevant to Health Maintenance Insurance * Guarantor: Luis Moya Account Type Relation to Patient Date of Phone Billing Address Personal/Family Self [address] [place] [address] [facility] C3 * Guarantor: Luis Moya Account Type Relation to Patient Date of Phone Billing Address Dental Self [address] [place] [address] [facility] MEDICAID STAND ADULT * Guarantor: Luis Moya Account Type Relation to Patient Date of Phone Billing Address Personal/Family Self [address] [place] [address] * Guarantor: Luis Moya Account Type Relation to Patient Date of Phone Billing Address Personal/Family Self [address] [place] [address] * Guarantor: Luis Moya Account Type Relation to Patient Date of Phone Billing Address Personal/Family Self [address] [place] [address] Care Teams Analytical Data Miner Relationship Specialty Start Date End Date Veronica Edmondson NP [address] [place] [address] PCP - General Family Medicine 12/23/23
--- OUTSIDE RECORDS SUMMARY | 2024-08-23 16:20 | XMS_ITS | Encounter Summary ---
Author Organization [employer] Address [address] [facility] 7t [place] [address] Care Team Providers Care Prime Broker Name Role Phone Veronica Edmondson NP Primary Care Provider [phone] Reason for Visit * Reason Comments Med Refill Encounter Details Date Type Department Care Team ([facility] st Contact Info) Description 02/29/2024 Refill [facility] [address] [place], [place] [phone] Veronica Edmondson NP [address] [place], [place] [phone] Social History Tobacco Use Types Packs/Day Years [...] Answer Date Recorded Patient Health Questionnaire-2 Score 5 12/23/2023 Internet Access Answer Date Recorded Internet Access [...] Office Visit [facility] [address] [place] [address] Veronica Edmondson NP [address] [place] [address] documented as of this encounter Visit Diagnoses Not on filedocumented in this encounter Additional Health Concerns Assessment Noted Time PHQ-9 Depression Total Score: 21 024 2:46 PM EDT documented as of this encounter Care Teams Prime Broker Relationship Specialty Start Date End Date Veronica Edmondson NP [address] [place] [address] PCP - General Family Medicine 12/23/23 documented as of this encounter
--- OUTSIDE RECORDS SUMMARY | 2024-08-23 16:20 | XMS_ITS | Encounter Summary ---
Author Organization [employer] [facility] [employer] Address [address] [facility] 7t [place] [address] Care Team Providers Care Crabber Name Role Phone Veronica Edmondson NP Primary Care Provider [phone] Encounter Details Date Type Department Care Team (Latest Contact Info) Description 08/07/2024 11:30 AM EST Office Visit [facility] [address] [place], [place] [phone] Veronica Edmondson NP [address] [place], [place] [phone] Morbid obesity with BMI of 40.0-44.9, adult (CMS/HCC) (Primary Dx); Lumbosacral radiculopathy; Moderate asthma, unspecified whether complicated, unspecified whether persistent; Disorganized schizophrenia (CMS/HCC) Social History Tobacco Use Types Packs/Day Years [...] AM EST documented as of this encounter Last Filed Vital Signs Vital Sign Reading [...] Mass Index 43.35 08/07/2024 11:34 AM EST documented in this encounter Plan of Treatment Upcoming Encounters Date Type Department Care Team (Late st Contact Info) Description 09/24/2024 11:30 AM EDT Office Visit [facility] [address] [place] [address] Veronica Edmondson NP [address] [place] [address] documented as of this encounter Visit Diagnoses Diagnosis Morbid obesity with BMI of 40.0-44.9, adult ([facility])- Primary Lumbosacral radiculopathy Thoracic or lumbosacral neuritis or radiculitis, unspecified Moderate asthma, unspecified whether complicated, unspecified whether persistent Disorganized schizophrenia ([facility]) Disorganized schizophrenia, unspecified condition documented in this encounter Additional Health Concerns Assessment Noted Time PHQ-9 Depression Total Score: 21 024 2:46 PM EDT documented as of this encounter Care Teams Crabber Relationship Specialty Start Date End Date Veronica Edmondson NP [address] [place] [address] PCP - General Family Medicine 12/23/23 documented as of this encounter
--- OUTSIDE RECORDS SUMMARY | 2024-08-23 16:20 | XMS_ITS | Encounter Summary ---
Author Organization [employer] [facility] Address [address] [place] [address] 7t [place] [address] Care Team Providers Care Paraffin Machine Operator Name Role Phone Veronica Edomndson NP Primary Care Provider [phone] Reason for Visit * Reason Onset Date Comments Prior Authorization 08/02/2024 Zepbound Encounter Details Date Type Department Care Team ([facility] Contact Info) Description 08/02/2024 Telephone [facility] [address] [place] [address] Veronica Edmondson NP [address] [place] [address] Prior Authorization (Zepbound) Social History Tobacco Use Types Packs/Day Years [...] encounter Miscellaneous Notes * Telephone Encounter - Alma Jimenez - 08/07/2024 10:25 AM EST PA approval received for Matthiaspbound. Scanned into media. * Telephone Encounter - Alma Jimenez - 08/07/2024 9:43 AM EST PA for Madai[employer] signed and faxed to [employer] on 08/03/2024. Confirmation received and sent to scan. If patient calls to check status on above, please advise them to contact Pharmacy . * Telephone Encounter - Alma Jimenez - 08/02/2024 3:13 PM EST PA for Zepbound from [employer] placed on PCP desk for signature. documented in this encounter Plan of Treatment Upcoming Encounters Date Type Department Care Team ([facility] st Contact Info) Description 09/24/2024 11:30 AM EDT Office Visit [facility] [address] [place] [address] Veronica Edmondson NP [address] [place] [address] documented as of this encounter Visit Diagnoses Not on filedocumented in this encounter Additional Health Concerns Assessment Noted Time PHQ-9 Depression Total Score: 21 024 2:46 PM EDT documented as of this encounter Care Teams Paraffin Machine Operator Relationship Specialty Start Date End Date Veronica Edmondson NP [address] [place] [address] PCP - General Family Medicine 12/23/23 documented as of this encounter
== END 2024-08-23 15:02 | disposition home or self-care (01) ==
PROVIDERS: PCP Nurse Practitioner Family; Visit Provider Urology
DX: R31.0 Gross hematuria (principal); R35.0 Frequency of micturition; N32.89 Other specified disorders of bladder
CPT/HCPCS: 52000; 99213

== ENCOUNTER → 2024-08-23 13:25 | Outpatient (BNVA) | payer MEDICAID, SELFPAY | PROVIDERS: PCP Nurse Practitioner Family; Visit Provider Urology | DX: R39.15 Urgency of urination (principal); R31.0 Gross hematuria; R35.0 Frequency of micturition; N32.89 Other specified disorders of bladder; Z12.5 Encounter for screening for malignant neoplasm of prostate | CPT/HCPCS: 52000; 81003; 99212 ==

== ENCOUNTER 2024-12-04 16:04 | Outpatient (REF) | payer MEDICAID, SELFPAY ==
[2024-12-04 17:34] LABS: MANUAL DIFF FLAG NO
[2024-12-04 17:52] LABS: Basophils Absolute Auto 0.1 X10*3/uL (0.0-0.2); Basophils Percent Auto 0.5 % (0-2); Eosinophils Absolute Auto 0.4 X10*3/uL (0.0-0.4); Eosinophils Percent Auto 3.4 % (0-4); Hematocrit 45.7 % (42.0-52.0); Hemoglobin 15.1 g/dl (14.0-18.0); Imm Gran Abs Auto 0.05 X10*3/uL (0.00-0.03); Imm Gran Pct Auto 0.5 % (0.0-0.4); Lymphocytes Absolute Auto 2.3 X10*3/uL (1.2-4.9); Lymphocytes Percent Auto 21.7 % (20-40); Mean Corpuscular Hemoglobin 27.9 pg (27.0-33.0); Mean Corpuscular Volume 84.3 fL (80.0-98.0); Mean Platelet Volume 10.2 fL (9.4-12.4); Monocytes Absolute Auto 0.9 X10*3/uL (0.1-1.2); Monocytes Percent Auto 8.6 % (2-11); Neutrophils Absolute Auto 6.9 x10*3/uL (2.0-8.3); Neutrophils Percent Auto 65.3 % (45-73); Platelet Count 249 X10*3/uL (160-400); Red Blood Count 5.42 X10*6/uL (4.60-5.80); White Blood Count 10.5 X10*3/uL (4.8-10.8)
--- OUTSIDE RECORDS SUMMARY | 2024-12-04 18:26 | XMS_ITS | Encounter Summary ---
Author Organization [employer] Address [address] [place] [address] Care Team Providers Care Knife Operator Name Role Phone Veronica Edmondson NP Primary Care Provider [phone] Reason for Visit * Reason Onset Date Comments Chart Prep 12/03/2024 Encounter Details Date Type Department Care Team ([facility] st Contact Info) Description 12/03/2024 Telephone [facility] MEDICINE [address], [place] [phone] Veronica Edmondson NP [address] [place] [address] Chart Prep Social History Tobacco Use Types Packs/Day Years Used Date Smoking Tobacco: Never Passive Smoke Exposure: Never Smokeless Tobacco: Never Alcohol Use Standard Drinks/Week Comments Never 0 (1 standard drink = 0.6 oz pur e alcohol) Depression Answer Date Recorded Patient Health Questionnaire-9 Score 8 11/14/2024 Patient Health Questionnaire-9 Score 8 11/14/2024 Last PHQ-9: Questionnaire Data Not on file 0 11/14/2024 Housing Stability Answer Date Recorded What is your housing situation today? I have malia miranda 11/26/[address] you li ve. Do you have problems with any of the following? Water leaks;Pests such as bugs, ants, or mice 11/26/2024 Food Insecurity Answer Date Recorded Within the [...] from getting things needed for daily living? Yes, it has kept me from medical appointments or getting medications. 11/26/2024 Utilities Answer Date Recorded In the past 12 months, has t he electric, gas, oil or water company threatened to shut off services in your home? No 12/15/2023 Depression Answer Date Recorded Patient Health Questionnaire-2 Score 4 11/14/2024 Internet Access Answer Date Recorded Internet Access Q1 Yes 11/26/2024 Internet Access Q2 I do not want or need it 02/2025 Sex and Gender Information Value Date Recorded Sex Assigned at Male 04/19/2022 10:14 AM EDT Legal Sex Male 10:14 AM EDT Gender Identity Male 06/30/2022 11:59 AM EST Sexual Orientation Choose not to disclose 2022 11:59 AM EST documented as of this encounter Miscellaneous Notes * Telephone Encounter - Keyla Sanchez MA - 12/03/2024 10:58 AM EDT Chart Prep Labs: not applicable Images: not applicable Referrals: not applicable Vaccines due: PCV20, Tdap, and Zoster Screenings: colonoscopy and Lipid Panel, HIV and Hep C. Overdue care gaps: Disability screen and Tobacco documented in this encounter Plan of Treatment Upcoming Encounters Date Type Department Care Team (Late st Contact Info) Description 12/17/2024 1:45 PM EDT Office Visit [facility] MEDICINE [address] [place] [address] Veronica Edmondson NP [address] [place] [address] documented as of this encounter Visit Diagnoses Not on filedocumented in this encounter Additional Health Concerns Assessment Noted Time PHQ-9 Depression Total Score: 8 11/15/19 25 3:35 PM EDT documented as of this encounter Care Teams Knife Operator Relationship Specialty Start Date End Date Veronica Edmondson NP [address] [place] [address] PCP - General Family Medicine 12/23/23 documented as of this encounter
[2024-12-05 10:35] LABS: Lyme Abs Screen <0.90 index
[2024-12-06 09:33] LABS: RPR Rapid Plasma Reagin NON-REACTIVE (NON-REACTIVE)
[2024-12-07 05:43] LABS: TS Negative Control Passed; TS Panel A 0; TS Panel B 0; TS Positive Control Passed; TSpotTB Negative (Negative)
== END 2024-12-04 16:05 | disposition home or self-care (01) ==
LOC: HO.HHCL 16:04
PROVIDERS: PCP Nurse Practitioner Family; Visit Provider Nurse Practitioner Family
DX: A69.20 Lyme disease, unspecified (principal); M25.50 Pain in unspecified joint; R41.3 Other amnesia
CPT/HCPCS: 36415; 85025; 86481; 86592; 86617; 86618